=== PATIENT | male | born 2000 | race African-American/Black ===

== ENCOUNTER 2022-01-03 22:23 | Emergency (ER) | payer OTHER, SELFPAY ==
[2022-01-03 22:26] VITALS: BP 132/69; PULSE 71; RESP 18; TEMP 36.7; O2SAT 98; BMI 24.4
--- NOTE | 2022-01-03 22:41 | ED_ITS ---
HPI - Eye Problem General Chief complaint: Eye Problems Stated complaint: hot oil splashed in rt eye Time Seen by Provider: 01/03/22 22:41 Source: patient Mode of arrival: ambulatory Limitations: no limitations History of Present Illness HPI Narrative: Patient was working earlier small dros of oilfrom the chicken splattered to his face patient was wearing glasses felt that it went to his right eye had some blurred vision now is getting better. Patient washed his eyes immediately no other injuries Related Data Allergies Allergy/AdvReac Type Severity Reaction Status Date / Time No Known Allergies Allergy Verified 01/03/22 22:26 Review of Systems Review of Systems: Yes all other systems are reviewed and are negative [facility] Social History Social History Advance Directives: No Physical Exam Vital Signs: Vital Signs: Last Vital Signs Temp 98.1 F 01/03/22 22:26 Pulse 71 01/03/22 22:26 Resp 18 01/03/22 22:26 BP 132/69 01/03/22 22:26 Pulse Ox 98 01/03/22 22:26 BMI result Body Mass Index 24.4 Eyes: General: appearance normal, both eyes and all related structures Visual Mai: normal visual mai by confrontation Eyelids: Yes eyelids normal Conjunctivae: conjunctivae normal Sclerae: sclerae normal Corneas: corneas normal and fluorescein used Pupils: Equal, round and reactive pupils present EOM: EOMs intact bilaterally Eyes/upper lids images: 1. No fluorescent dye uptake no signs of inflammation Neuro: Cranial nerves: Yes Equal, round and reactive pupils present MDM - Eye Problem MDM Narrative Medical decision making narrative: No conjunctival injection no corneal fluorescein uptake no significant damage to the right eye seen Discharge Plan Discharge Clinical Impression: Chemical injury of right eye Patient Disposition: Home, Self-Care Instructions: Chemical Eye Levin (ED) Additional Instructions: No damage to the right cornea seen by examination Local care as advised Follow-up with eye doctor if any questions
[2022-01-03] MEDS: Fluorescein Sodium STRIP 1 STRIP EYE-RIGHT (22:59)
== END 2022-01-03 23:23 | disposition home or self-care (01) ==
PROVIDERS: Emergency Provider Internal Medicine
DX: T26.91XA Corrosion of right eye and adnexa, part unspecified, initial encounter (principal); X10.2XXA Contact with fats and cooking oils, initial encounter; Y93.G3 Activity, cooking and baking; Y92.511 Restaurant or cafe as the place of occurrence of the external cause; Y99.0 Civilian activity done for income or pay
CPT/HCPCS: 99283; 99284

== ENCOUNTER 2024-03-30 09:27 | Outpatient (AMB) | payer OTHER, SELFPAY ==
--- NOTE | 2024-03-30 09:48 | AM.OFFWIN_ITS ---
Intake Vital Signs 03/30/24 09:57 Height 6 ft Weight 183 lb BMI 24.8 BP 130/70 Blood Pressure Location Lt brachial Position Sitting Pulse 61 Pulse Source Pulse Oximeter Temp 97.7 F Temp Source Temporal Artery Scan Pulse Oximetry (%) 99 Oxygen Delivery Method Room Air Intake Visit Reasons: WC stitches at [facility] swollen/pain Intake Note: pt is here today for stitches swollen and pain started yesterday Patient Tobacco Use Status: Current everyday Tobacco user Allergies No Known Allergies Allergy (Verified 03/30/24 09:59) Do you need a note to return to daycare/school/sports/work: No HPI HPI Comments History of Present Illness Details This is a 23-year-old male who presented to the walk-in clinic complaining of right forearm swelling x2 days. Patient states he had an injury that occurred at work and he had sutures placed at [facility] 5 days ago. Patient states he started to notice some right forearm swelling yesterday. He states the swelling has improved today. He denies any numbness/weakness/paresthesias. He denies any erythema or drainage. [facility] Social History Patient Tobacco Use Status: Current everyday Tobacco user Review of Systems Const All systems reviewed & are unremarkable except as noted in HPI and below Reports no additional complaints Eyes Reports no additional complaints ENT Reports no additional complaints Card Reports no additional complaints Resp Reports no additional complaints GI Reports no additional complaints Reports no additional complaints Musc Reports no additional complaints Skin/Breast Reports system reviewed and no additional complaints, except as documented Neuro Reports no additional complaints Psych Reports no additional complaints Endo Reports no additional complaints Matheus/Lymph Reports no additional complaints Aller/Immun Reports no additional complaints Physical Exam Vital Signs: Last Vital Signs Temp 97.7 F 03/30/24 09:57 Pulse 61 03/30/24 09:57 BP 130/70 03/30/24 09:57 Pulse Ox 99 03/30/24 09:57 Oxygen Delivery Method Room Air 03/30/24 09:57 BMI result Body Mass Index 24.8 Const Other: Vital signs reviewed. Constitutional: Non-toxic appearing. No acute distress. Well-developed and well-nourished. HEENT: Normocephalic and atraumatic. Skin: Warm and dry. No rashes or lesions noted. There is a laceration to the anterior right forearm status post suture repair without surrounding erythema, wound dehiscence, or purulent drainage. Neck: Full and painless range of motion. No cervical lymphadenopathy. Cardio: Regular rate. Pulmonary: No respiratory distress. No accessory muscle usage. Gastrointestinal: Soft, nontender, and nondistended in all 4 quadrants. Musculoskeletal: Normal range of motion in joints throughout the body. There is mild swelling of the right forearm without any evidence of fluctuance/indura tion. Neuro: Alert and oriented x4. Cranial nerves 2-12 grossly intact. No focal deficits appreciated. Psych: Normal mood and affect. Assessment & Plan Assessment & Plan (1) Localized swelling of right upper extremity: Code(s): R22.31 - Localized swelling, mass and lump, right upper limb Plan: This is a 23-year-old male who presented to the walk-in clinic complaining of swelling of the right forearm following suture repair of a laceration 5 days ago. Physical examination, there is minimal swelling of the right forearm. There is no evidence of wound infection/cellulitis. The sutures are intact. There is no fluctuance or induration to suggest abscess formation. Given recent injury as well as suture placement, check ultrasound venous duplex of the right upper extremity to rule out DVT. Otherwise, I have recommended supportive management including rest/activity modification, ice to the area, compression, and elevation of the extremity. Patient verbalized understanding and he is in agreement with the plan. Orders: Orders US venous duplex UE RT Today M79.89 - Other specified soft tissue disorders Coding Level of Care Code New Pt Level 3 (64990) Diagnoses Localized swelling of right upper extremity R22.31
[2024-03-30 09:57] VITALS: BP 130/70; PULSE 61; TEMP 36.5; O2SAT 99; BMI 24.8
== END 2024-03-30 10:35 | disposition home or self-care (01) ==
PROVIDERS: Visit Provider Physician Assistant Medical
DX: R22.31 Localized swelling, mass and lump, right upper limb (principal); Z04.2 Encounter for examination and observation following work accident
CPT/HCPCS: 99203

== ENCOUNTER 2024-03-30 14:11 | Outpatient (REF) | payer OTHER, SELFPAY ==
--- NOTE | ~2024-03-30 | US_ITS ---
EXAMINATION: US TRIPLEX UPPER EXTREMITY, RIGHT CLINICAL INFORMATION: Right arm swelling COMPARISON: None available. TECHNIQUE: Color-flow triplex imaging with spectral analysis and compression Doppler was performed on the right upper extremity. FINDINGS: The right internal jugular, subclavian, and axillary veins are patent and free of thrombus. The imaged segment of the right brachiocephalic vein is patent. Spectral doppler waveforms are normal. The brachial, basilic, cephalic, radial, and ulnar veins are patient and compressible. US/US venous duplex UE RT IMPRESSION: No evidence of deep venous thrombosis involving the right upper extremity.
== END 2024-03-30 14:12 | disposition home or self-care (01) ==
LOC: HO.HMGCX 14:11
PROVIDERS: Visit Provider Physician Assistant Medical
DX: R60.0 Localized edema (principal)
CPT/HCPCS: 93971

== ENCOUNTER 2024-04-08 11:06 | Outpatient (AMB) | payer OTHER, SELFPAY ==
[2024-04-08 13:05] VITALS: BP 130/72; PULSE 58; O2SAT 99; BMI 24.7
--- NOTE | 2024-04-08 13:05 | MHC.OFFWIV ---
Intake Vital Signs 04/08/24 13:05 Height 6 ft Weight 182 lb BMI 24.7 BP 130/72 Blood Pressure Location Lt brachial Position Sitting Pulse 58 Pulse Source Pulse Oximeter Pulse Oximetry (%) 99 Oxygen Delivery Method Room Air Intake Visit Reasons: EP removal of stitches Intake Note: Patient is here for removal of sutures put in on march 25. 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 He reports that 8 sutures were put in to close the laceration at the [facility] emergency department, and he was told to have them taken out at this point. He also reports that a few days after the laceration he started to get swelling under the skin just distal to the laceration, and was evaluated here at the walk-in with ultrasound done on the right upper extremity to rule out a DVT. He was told the it was negative for clot, but that it was likely pooling of blood from the injury. He reports no tenderness to the area of swelling, or to the laceration. There is no warmth to the area either, and he denies weakness numbness or tingling to the right arm or hand. He has left the laceration open to the air for the last few days. No fever or chills or other associated systemic symptoms of infection. Patient denies diabetes or other immuno compromising issues on review past medical history, and denies poor wound healing in the past. [facility] Social History Patient Tobacco Use Status: Current everyday Tobacco user Review of Systems Const All systems reviewed & are unremarkable except as noted in HPI and below Physical Exam Vital Signs: Last Vital Signs Pulse 58 04/08/24 13:05 BP 130/72 04/08/24 13:05 Pulse Ox 99 04/08/24 13:05 Oxygen Delivery Method Room Air 04/08/24 13:05 BMI result Body Mass Index 24.7 Skin Other: Proximally 2.5 cm laceration horizontally to the right anterior mid are, with no surrounding erythema, or warmth. The sutures are intact with mild dryness and flaking around the sutures. There is a small flap of dried skin near the center to medial side of the laceration. No obvious wound dehiscence. No bleeding or discharge noted. No streaking, induration or fluctuance. No tenderness to palpation of the area. There is a firm mass a few cm distal to the laceration where the patient had been diagnosed with a hematoma. This area is also not fluctuance, and no erythema edema or warmth as well as no tenderness. He is neurovascularly intact distally with good cap refill Assessment & Plan Assessment & Plan (1) Encounter for removal of sutures: Code(s): Z48.02 - Encounter for removal of sutures Plan Patient is a 23-year-old male who had right forearm laceration sutured 14 days ago occluding in the hospital, with suture removal due around today. There was mild dehiscence to the laceration after all 8 sutures were removed, mostly to the medial side of the laceration. Right next to that area there had been some slight skin overlap where the skin edge had dried and not completely closed to the other side. That side was heavily Steri stripped and patient was advised to keep it clean covered and dry. We discussed being careful with use of the forearm, and he reported that he is a chef passenger vessel and does work with his right arm, so we discussed light duty so that he can avoid stress to the forearm and getting it wet under the bandage. Work note pertaining to this was given. He plans to follow-up back at the walk-in early in the week for further follow-up. In the meantime, he was given extra supplies for bandaging Coding Level of Care Code Est Pt Level 4 (25705) Diagnoses Encounter for removal of sutures Z48.02
== END 2024-04-08 14:23 | disposition home or self-care (01) ==
PROVIDERS: Visit Provider Physician Assistant Medical
DX: Z48.02 Encounter for removal of sutures (principal); Z04.2 Encounter for examination and observation following work accident
CPT/HCPCS: 15853; 99213

== ENCOUNTER 2025-06-19 11:48 | Outpatient (AMB) | payer OTHER, SELFPAY ==
[2025-06-19 12:26] VITALS: BP 122/74; PULSE 64; TEMP 36.6; O2SAT 99; BMI 24.0
--- NOTE | 2025-06-19 12:26 | AM.OFFWIN_ITS ---
Intake Vital Signs 06/19/25 12:26 Height 6 ft Weight 177 lb 4 oz BMI 24.0 BP 122/74 Blood Pressure Location Lt brachial Position Sitting Pulse 64 Pulse Source Pulse Oximeter Temp 97.8 F Temp Source Oral Pulse Oximetry (%) 99 Oxygen Delivery Method Room Air Intake Visit Reasons: EP Large cyst under ear Patient Tobacco Use Status: Current everyday Tobacco user [employer] Required: No Allergies No Known Allergies Allergy (Verified 06/19/25 12:30) Do you need a note to return to daycare/school/sports/work: Yes HPI HPI Comments History of Present Illness Details History of Present Illness - The patient is a 25-year-old male pres enting with an abscess under the ear. - The abscess was initially thought to b e a pimple and started on Wednesday or Wednesday. 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 - The abscess has not drained and is domi nful to the touch. - He has never had one in the past. - He denies fever or chills. Physical Exam General: Cooperative, healthy appearing, comfortable, no acute distress and well developed Orientation: Patient oriented x3 Head: Normal to inspection Ears: Hearing grossly normal bilaterally Neck: Normal visual inspection and Yes full ROM. Lymphadenopathy noted on the right pre-auricle, tonsillar. Respiratory: Normal respiratory effort and able to speak in complete sentences. Clear to auscultation bilaterally. No w/r/r noted. Cardiovascular: Regular rate and rhythm. Normal S1 and S2. No m/r/g noted. Skin: No rashes or lesions noted. Abscess on the right lateral neck under the right ear. Raised, tender to the touch and fluctuant, with erythema. Patient was informed and verbally consented to the use of an ambient scribe for clinic note documentation during this visit. [facility] Social History Patient Tobacco Use Status: Current everyday Tobacco user Review of Systems Const All systems reviewed & are unremarkable except as noted in HPI and below Physical Exam Vital Signs: Last Vital Signs Temp 97.8 F 06/19/25 12:26 Pulse 64 06/19/25 12:26 BP 122/74 06/19/25 12:26 Pulse Ox 99 06/19/25 12:26 Oxygen Delivery Method Room Air 06/19/25 12:26 BMI result Body Mass Index 24.0 Office Procedures I&D Drain Details: Area cleaned with betadine and alcohol. #18 guage needle used to puncture the ab scess. Copious amt of purulent discharge expressed from the area with blood. Patient did not tolerate the expressing of the fluid and at one point asked me to stop. Cleaned with alcohol and a bandaid applied. Will give antibiotics. 49976-Lnblcvof of Skin Abscess, simple All charges added?: Procedure code (CPT) selection complete Assessment & Plan Assessment & Plan (1) Abscess of neck: Code(s): L02.11 - Cutaneous abscess of neck Plan Most likely abscess I&D in the office Plan - The abscess under the ear requires drainage to prevent complications and allow for healing. - Antibiotic therapy may be necessary to treat any underlying infection and prevent recurrence. - tylenol or motrin as needed - keep area clean and dry - advised to come back if no resolution Orders: Orders AMB Incision & Drainage Today L02.91 - Cutaneous abscess, unspecified Medications: New sulfamethoxazole-trimethoprim 800-160 mg (Bactrim DS) 1 tab PO q12h 14 tabs 0RF 7 days cephalexin 500 mg PO Q6H 28 caps 0RF 7 days Coding Level of Care Code Est Pt Level 4 (39000) Diagnoses Abscess of neck L02.11 CPT Codes I&D Drain - Drain 1: 93415-Vyicbvne of Skin Abscess, simple ([id number])
--- OUTSIDE RECORDS SUMMARY | 2025-06-19 12:38 | XMS_ITS | Clinical Summary ---
Author Organization [facility] Address [address] [place] [id number] Phone Care Team Providers Care Pattern Mechanic Name Role Phone Pcp, Unknown Primary Care Provider Unavailabl e Allergies No known active allergies Immunizations Immunization Administration Dates Next Due Tdap 03/25/2024 Social History Tobacco Use Types Packs/Day Years Used Date Smoking Tobacco: Never Assessed Education Answer Date Recorded Are you interested in more education? Not on derick e 03/25/2024 Are you concerned about learning? Not on file 03/25/2024 No 03/25/2024 No 03/25/2024 Digital Access Answer Date Recorded No 03/25/2024 No 03/25/2024 Reliable internet access at home? Not on file 03/25/2024 Device with a working camera? Not on file Intimate Partner Violence Answer Date R ecorded Are you denied basic needs s uch as food, clothing, or medical care? No 03/25/2024 In the past 12 months have y ou been in a relationship with a person who hurts, threatens, or tries to control you? No 03/25/2024 Are you denied basic needs s uch as food, clothing, or medical care? No 03/25/2024 In the past 12 months have y ou been in a relationship with a person who hurts, threatens, or tries to control you? No 03/25/2024 Sex and Gender Information Value Date Recorded Sex Assigned at Male 03/25/2024 9:19 PM EDT Legal Sex Male 9:14 PM EDT Gender Identity Male 03/25/2024 9:19 PM EDT Sexual Orientation Not on file Last Filed Vital Signs Vital Sign Reading Time Taken Comments Blood Pressure 165/101 03/25/2024 9:19 PM EDT Pulse 96 03/25/2024 9:19 PM EDT Temperature 36.4 C (97.5 F) 03/25/2024 9:19 PM EDT Respiratory Rate 24 03/25/2024 9:19 PM EDT Oxygen Saturation 100% 03/25/2024 9:19 PM EDT Inhaled Oxygen Concentration - - Weight 79.4 kg (175 lb) 03/25/2024 9:19 PM EDT Height 180.3 cm (5' 11 ) 03/25/2024 9:19 PM EDT Body Mass Index 24.41 03/25/2024 9:19 PM EDT Plan of Treatment Not on file Medical Devices Not on file [place] [address] [address] [place] [address] [place] [address] [place] [address] [employer] Member Subscriber Plan / Payer (Ef fective 2024-Present) Name:Luigi Cristobal Relation to Subscriber:Employee Name:LUIGI CRISTOBAL Date of :2000 Address: [address] [place] [address] Payer ID:Not on file Group ID:Not on file Type:Indemnity Address: [facility] [id number] [facility] [place] [address] Care Teams Pattern Mechanic Relationship Specialty Start Date End Date Pcp, Unknown PCP - General 03/25/24 Additional Source Comments The information contained in this document represents components of the legal health record. It is not the complete legal health record.[facility]
== END 2025-06-19 13:34 | disposition home or self-care (01) ==
PROVIDERS: Visit Provider Physician Assistant Medical
DX: L02.11 Cutaneous abscess of neck (principal)

== ENCOUNTER → 2025-06-19 11:48 | Outpatient (BNVA) | payer OTHER, SELFPAY | PROVIDERS: Visit Provider Physician Assistant Medical | DX: L02.11 Cutaneous abscess of neck (principal) | CPT/HCPCS: 10060; 99212 ==